=== PATIENT | female | born 2000 | race American Indian/Alaskan Native ===

== ENCOUNTER 2020-09-14 21:23 | Inpatient (IN) | payer OTHER ==
[2020-09-14] MEDS ORDERED: TERBUTALINE 1 MG/1 ML INJ SUB-Q PRN (21:48)
[2020-09-14] MEDS ORDERED: ePHEDrine SULFATE 50 MG/1 ML INJ IV PRN (21:48)
[2020-09-14] MEDS ORDERED: ACETAMINOPHEN 325 MG TAB PO PRN (21:48)
[2020-09-14] MEDS ORDERED: MINERAL OIL 30 ML ORAL LIQD PO PRN (21:48)
[2020-09-14] MEDS ORDERED: LIDOCAINE (2%) 20 MG/1 ML VIAL 20 ML MDV INFILTRATI ONE (21:48)
[2020-09-14] MEDS ORDERED: OXYTOCIN DRIP 30 UNITS/500 ML BAG IV SCH ×2 (22:00→23:00)
--- NOTE | 2020-09-14 22:29 | History and Physical Report ---
History of Present Illness Date of examination: 09/14/20 Date of admission: 09/14/20 21:23 Chief complaint: Here for induction of labor History of present illness: 19 year old presents to L&D for induction of labor due to gestational hypertension. Patient denies headache, visual disturbance, swelling, or nausea/vomiting. 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 LMP 12/24/2019. DEBO 09/29/2020. significant for the following: late care, insufficient care (missed a number of appointments), PIH. labs are as follows: B+, antibody screen negative, hepatitis B surface antigen negative, RPR nonreactive, HIV negative, gonorrhea negative, chlamydia negative, trichomonas negative, hemoglobin electroporesis negative, AFP negative, 1 hour sugar test 106, GBS negative. 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 denies: smoking, alcohol abuse, prescription drug abuse, IV drug use - Obstetrical History Expected Date of Delivery: 09/29/20 Actual Gestation: 37 Week(s) 6 Day(s) : 1 Para: 0 Hx # Term Pregnancies: 0 Number of Pregnancies: 0 Spontaneous Abortions: 0 Induced : 0 Number of Living Children: 0 Medications and Allergies Allergies Allergy/AdvReac Type Severity Reaction Status Date / Time No Known Drug Allergies Allergy Unknown Verified 09/14/20 21:57 Home Medications Medication Instructions Recorded Confirmed Last Taken Type No Known Home Medications [No 09/14/20 09/14/20 Unknown History Reported Home Medications] Active Meds: Active Medications Acetaminophen (Acetaminophen 325 Mg Tab) 650 mg PO Q4H PRN PRN Reason: Pain, Mild (1-3) Ephedrine Sulfate (Ephedrine Sulfate 50 Mg/1 Ml Inj) 10 mg IV Q2M PRN PRN Reason: Hypotension Fentanyl (Fentanyl 100 Mcg/2 Ml Inj) 100 mcg IV Q2H PRN PRN Reason: Pain,Severe (7-10) LABOR PAIN Lactated Ringer's (Lactated Ringers) 1,000 mls @ 125 mls/hr IV DIRECT TERRA Oxytocin/Sodium Chloride (Pitocin/Ns 30 Unit/500ml) 30 units in 500 mls @ 40 mls/hr IV TITR TERRA; Protocol Mineral Oil (Mineral Oil 30 Ml Oral Liqd) 30 ml PO QHS PRN PRN Reason: Constipation Terbutaline Sulfate (Terbutaline 1 Mg/1 Ml Inj) 0.25 mg SUB-Q ONCE PRN PRN Reason: Hyperstimulation/Hypertonicity Review of Systems All systems: negative (irregular contractions) - Vital Signs Vital signs: Vital Signs Temp Pulse Resp BP Pulse Ox 98.3 F 108 H 12 143/95 100 09/14/20 21:49 09/14/20 21:49 09/14/20 21:49 09/14/20 21:49 09/14/20 21:49 Temp Pulse Resp BP Pulse Ox 98.3 F 111 H 12 143/95 100 09/14/20 21:49 09/14/20 22:16 09/14/20 21:49 09/14/20 21:55 09/14/20 22:16 - Physical Exam Abdomen: Positive: normal appearance, soft. Negative: distention, tenderness, guarding, rigidity Genitourinary (Female): Positive: normal external genitalia, normal perenium. Negative: perineal/vulvar lesions Vagina: Positive: normal moisture Uterus: Positive: enlarged. Negative: tender Anus/Rectum: Positive: normal perianal skin Extremities: Positive: normal. Negative: tenderness, edema - Obstetrical FHR: category 1 Uterine Contraction Monitor Mode: Palpation Cervical Dilatation: 0.5 Cervical Effacement Percentage: 30 station: -3 Uterine Contraction Pattern: Irregular Uterine Contraction Intensity: Mild Results All other labs normal. Assessment and Plan A: at 37 weeks, 6 days gestation. Gestational hypertension. P: Admit. EFM. Preeclamptic labs. US for presentation. Cervical ripening and induction of labor. Discussed with patient risks and benefits of cervical ripening and induction of labor. Patient consented to cervical ripening and induction of labor.
[2020-09-14 22:32] LABS: Hematocrit 28.7 % (30.3-42.9); Hemoglobin 9.4 gm/dl (10.1-14.3); Mean Corpuscular HGB Conc 33 % (30-34); Mean Corpuscular Volume 72 fl (79-97); Platelet Count 312 K/mm3 (140-440); Red Blood Count 4.01 M/mm3 (3.65-5.03)
[2020-09-14 22:44] LABS: Alanine Aminotransferase 17 units/L (7-56); Albumin 3.7 g/dL (3.9-5); BUN/Creatinine Ratio 14; Blood Urea Nitrogen 10 mg/dL (7-17); Calcium 9.2 mg/dL (8.4-10.2); Hemolysis Index 10
[2020-09-14] MEDS: LACTATED RINGERS 1,000 ML IV SCH (23:10)
--- NOTE | 2020-09-14 23:26 | Ultrasound Report ---
ULTRASOUND OBSTETRIC LIMITED INDICATION / CLINICAL INFORMATION: presentation. Clinical Gestational Age (GA) in weeks, days: 37 weeks 6 days TECHNIQUE: Transabdominal. COMPARISON: None available. FINDINGS: HEART RATE (beats per minute): 156 AMNIOTIC FLUID INDEX (cm) = not measured (normal = 7-24 cm) PRESENTATION: Cephalic. ADDITIONAL FINDINGS: None. IMPRESSION: 1. Single viable IUP in a cephalic presentation. Signer Name: Terri Mcclellan MD Signed: 09/14/2020 11:22 PM Workstation Name: [id number]
[2020-09-15 02:04] LABS: Amphetamine Screen,Urine PRESUMPTIVE NEGATIVE; Benzodiazepines Screen,Urine PRESUMPTIVE NEGATIVE; Cannabinoid Screen,Urine PRESUMPTIVE NEGATIVE; Cocaine Screen,Urine PRESUMPTIVE NEGATIVE; Methadone Screen,Urine PRESUMPTIVE NEGATIVE; Opiate Screen,Urine PRESUMPTIVE NEGATIVE
[2020-09-15 02:05] LABS: Bacteria,Urine 2+ /HPF (Negative); Bilirubin,Urine NEG (Negative); Blood,Urine NEG (Negative); Color,Urine Yellow (Yellow); Protein,Urine <15 mg/dL mg/dL (Negative); Urobilinogen,Urine < 2.0 mg/dL (<2.0)
[2020-09-15] MEDS ORDERED: DINOPROSTONE 10 MG VAG SUPP VG ONE ×2 (06:48→19:43)
--- NOTE | 2020-09-15 07:41 | Event Note ---
Date: 09/15/20 Patient is 38 weeks gestation having cervical ripening with Cervidil due to PIH. BPs are stable. Reassuring FHR. Care of patient turned over to Dr. Lomas.
--- NOTE | 2020-09-15 12:34 | Progress Note ---
Assessment and Plan - Patient Problems (1) Gestational hypertension Current Visit: Yes Status: Acute Plan to address problem: Pt is being induced. Cont care. BPs currently stable. Normal preeclamptic labs Subjective - Subjective Date of service: 09/15/20 (38w 0d) Patient reports: other (Pt is stable s/p cervidil #1. No preeclamptic sxs. preeclamptic Labs WNL.) Objective - Vital Signs Vital Signs: Vital Signs - 12hr 09/15/20 09/15/20 09/15/20 00:36 00:41 00:46 Temperature Pulse Rate 108 H 87 84 Respiratory Rate Blood Pressure 117/76 O2 Sat by Pulse 99 100 100 Oximetry 09/15/20 09/15/20 09/15/20 00:51 00:56 01:01 Temperature Pulse Rate 101 H 99 H 100 H Respiratory Rate Blood Pressure O2 Sat by Pulse 99 100 99 Oximetry 09/15/20 09/15/20 09/15/20 01:06 01:11 01:16 Temperature Pulse Rate 114 H 100 H 92 H Respiratory Rate Blood Pressure 131/81 O2 Sat by Pulse 100 100 100 Oximetry 09/15/20 09/15/20 09/15/20 01:21 01:26 01:40 Temperature Pulse Rate 111 H 98 H 117 H Respiratory Rate Blood Pressure O2 Sat by Pulse 99 100 94 Oximetry 09/15/20 09/15/20 09/15/20 01:45 01:50 01:55 Temperature Pulse Rate 92 H 105 H 100 H Respiratory Rate Blood Pressure 126/83 O2 Sat by Pulse 100 99 100 Oximetry 09/15/20 09/15/20 09/15/20 02:00 02:05 02:10 Temperature Pulse Rate 108 H 107 H 100 H Respiratory Rate Blood Pressure O2 Sat by Pulse 100 100 100 Oximetry 09/15/20 09/15/20 09/15/20 02:15 02:20 02:25 Temperature Pulse Rate 95 H 95 H 95 H Respiratory Rate Blood Pressure 121/80 O2 Sat by Pulse 100 99 99 Oximetry 09/15/20 09/15/20 09/15/20 02:30 02:35 02:40 Temperature Pulse Rate 91 H 90 120 H Respiratory Rate Blood Pressure O2 Sat by Pulse 99 99 97 Oximetry 09/15/20 09/15/20 09/15/20 02:45 02:46 02:50 Temperature Pulse Rate 99 H 98 H 98 H Respiratory Rate Blood Pressure 105/60 O2 Sat by Pulse 97 98 Oximetry 09/15/20 09/15/20 09/15/20 02:55 03:00 03:05 Temperature Pulse Rate 103 H 94 H 103 H Respiratory Rate Blood Pressure O2 Sat by Pulse 99 99 99 Oximetry 09/15/20 09/15/20 09/15/20 03:10 03:15 03:16 Temperature Pulse Rate 88 86 81 Respiratory Rate Blood Pressure 119/68 O2 Sat by Pulse 99 99 Oximetry 09/15/20 09/15/20 09/15/20 03:21 03:26 03:31 Temperature Pulse Rate 91 H 89 89 Respiratory Rate Blood Pressure O2 Sat by Pulse 98 98 98 Oximetry 09/15/20 09/15/20 09/15/20 03:36 03:41 03:46 Temperature Pulse Rate 107 H 95 H 95 H Respiratory Rate Blood Pressure 117/63 O2 Sat by Pulse 98 99 100 Oximetry 09/15/20 09/15/20 09/15/20 03:51 04:04 04:09 Temperature Pulse Rate 89 87 101 H Respiratory Rate Blood Pressure O2 Sat by Pulse 99 100 100 Oximetry 09/15/20 09/15/20 09/15/20 04:14 04:15 04:19 Temperature Pulse Rate 95 H 88 84 Respiratory Rate Blood Pressure 114/69 O2 Sat by Pulse 100 100 Oximetry 09/15/20 09/15/20 09/15/20 04:24 04:29 04:34 Temperature Pulse Rate 99 H 94 H 103 H Respiratory Rate Blood Pressure O2 Sat by Pulse 99 99 99 Oximetry 09/15/20 09/15/20 09/15/20 04:39 04:44 04:45 Temperature Pulse Rate 95 H 96 H 88 Respiratory Rate Blood Pressure 120/70 O2 Sat by Pulse 98 99 Oximetry 09/15/20 09/15/20 09/15/20 04:49 04:54 04:59 Temperature Pulse Rate 98 H 104 H 95 H Respiratory Rate Blood Pressure O2 Sat by Pulse 98 100 99 Oximetry 09/15/20 09/15/20 09/15/20 05:04 05:09 05:14 Temperature Pulse Rate 89 105 H 95 H Respiratory Rate Blood Pressure O2 Sat by Pulse 99 99 99 Oximetry 09/15/20 09/15/20 09/15/20 05:15 05:19 05:24 Temperature Pulse Rate 86 91 H 90 Respiratory Rate Blood Pressure 115/70 O2 Sat by Pulse 99 99 Oximetry 09/15/20 09/15/20 09/15/20 05:29 05:34 05:39 Temperature Pulse Rate 90 91 H 91 H Respiratory Rate Blood Pressure O2 Sat by Pulse 99 98 98 Oximetry 09/15/20 09/15/20 09/15/20 05:44 05:46 05:49 Temperature Pulse Rate 101 H 83 86 Respiratory Rate Blood Pressure 113/64 O2 Sat by Pulse 99 100 Oximetry 09/15/20 09/15/20 09/15/20 05:54 05:59 06:04 Temperature Pulse Rate 90 90 86 Respiratory Rate Blood Pressure O2 Sat by Pulse 99 99 98 Oximetry 09/15/20 09/15/20 09/15/20 06:09 06:14 06:15 Temperature Pulse Rate 79 95 H 90 Respiratory Rate Blood Pressure 118/71 O2 Sat by Pulse 100 100 Oximetry 09/15/20 09/15/20 09/15/20 06:19 06:24 06:29 Temperature Pulse Rate 95 H 90 98 H Respiratory Rate Blood Pressure O2 Sat by Pulse 100 100 100 Oximetry 09/15/20 09/15/20 09/15/20 06:34 06:39 06:44 Temperature Pulse Rate 90 88 89 Respiratory Rate Blood Pressure O2 Sat by Pulse 99 99 99 Oximetry 09/15/20 09/15/20 09/15/20 06:46 06:49 06:54 Temperature Pulse Rate 98 H 95 H 91 H Respiratory Rate Blood Pressure 113/60 O2 Sat by Pulse 100 100 Oximetry 09/15/20 09/15/20 09/15/20 06:59 07:04 07:09 Temperature Pulse Rate 98 H 103 H 82 Respiratory Rate Blood Pressure O2 Sat by Pulse 100 99 99 Oximetry 09/15/20 09/15/20 09/15/20 07:14 07:16 07:19 Temperature Pulse Rate 85 83 81 Respiratory Rate Blood Pressure 112/62 O2 Sat by Pulse 99 99 Oximetry 09/15/20 09/15/20 09/15/20 07:24 07:29 07:34 Temperature Pulse Rate 91 H 96 H 89 Respiratory Rate Blood Pressure O2 Sat by Pulse 99 99 99 Oximetry 09/15/20 09/15/20 09/15/20 07:39 07:44 07:46 Temperature Pulse Rate 105 H 79 82 Respiratory Rate Blood Pressure 120/80 O2 Sat by Pulse 100 98 Oximetry 09/15/2009/15/09/15/20 07:49 07:54 07:59 Temperature Pulse Rate 92 H 88 89 Respiratory Rate Blood Pressure O2 Sat by Pulse 99 99 99 Oximetry 09/15/20 09/15/20 09/15/20 08:00 08:04 08:09 Temperature 98.4 F Pulse Rate 90 88 Respiratory 18 Rate Blood Pressure O2 Sat by Pulse 99 100 Oximetry 09/15/20 09/15/20 09/15/20 08:14 08:15 08:19 Temperature Pulse Rate 91 H 92 H 86 Respiratory Rate Blood Pressure 115/75 O2 Sat by Pulse 100 100 Oximetry 09/15/20 09/15/20 09/15/20 08:24 08:29 08:34 Temperature Pulse Rate 83 90 95 H Respiratory Rate Blood Pressure O2 Sat by Pulse 99 99 99 Oximetry 09/15/20 09/15/20 09/15/20 08:39 08:44 08:45 Temperature Pulse Rate 94 H 92 H 86 Respiratory Rate Blood Pressure 126/78 O2 Sat by Pulse 99 99 Oximetry 09/15/20 09/15/20 09/15/20 08:49 08:54 08:59 Temperature Pulse Rate 96 H 94 H 81 Respiratory Rate Blood Pressure O2 Sat by Pulse 100 100 99 Oximetry 09/15/20 09/15/20 09/15/20 09:04 09:09 09:14 Temperature Pulse Rate 91 H 89 93 H Respiratory Rate Blood Pressure O2 Sat by Pulse 100 100 100 Oximetry 09/15/20 09/15/20 09/15/20 09:16 09:19 09:24 Temperature Pulse Rate 99 H 97 H 98 H Respiratory Rate Blood Pressure 117/69 O2 Sat by Pulse 99 97 Oximetry 09/15/2009/15/09/15/20 09:37 09:42 09:46 Temperature Pulse Rate 93 H 109 H 109 H Respiratory Rate Blood Pressure 110/63 O2 Sat by Pulse 100 100 Oximetry 09/15/2009/15/09/15/20 09:47 09:52 09:57 Temperature Pulse Rate 98 H 98 H 93 H Respiratory Rate Blood Pressure O2 Sat by Pulse 99 98 98 Oximetry 09/15/20 09/15/20 09/15/20 10:02 10:07 10:12 Temperature Pulse Rate 78 94 H 89 Respiratory Rate Blood Pressure O2 Sat by Pulse 98 98 98 Oximetry 09/15/20 09/15/20 09/15/20 10:16 10:17 10:22 Temperature Pulse Rate 94 H 84 88 Respiratory Rate Blood Pressure 121/65 O2 Sat by Pulse 98 97 Oximetry 09/15/20 09/15/20 09/15/20 10:27 10:32 10:37 Temperature Pulse Rate 88 81 97 H Respiratory Rate Blood Pressure O2 Sat by Pulse 98 98 97 Oximetry 09/15/20 09/15/20 09/15/20 10:42 10:46 10:47 Temperature Pulse Rate 86 85 91 H Respiratory Rate Blood Pressure 116/67 O2 Sat by Pulse 100 100 Oximetry 09/15/20 09/15/20 09/15/20 10:52 10:57 11:02 Temperature Pulse Rate 97 H 82 99 H Respiratory Rate Blood Pressure O2 Sat by Pulse 97 100 97 Oximetry 09/15/20 09/15/20 09/15/20 11:07 11:12 11:16 Temperature Pulse Rate 100 H 79 89 Respiratory Rate Blood Pressure 117/72 O2 Sat by Pulse 99 100 Oximetry 09/15/20 09/15/20 09/15/20 11:17 11:22 11:27 Temperature Pulse Rate 94 H 83 90 Respiratory Rate Blood Pressure O2 Sat by Pulse 100 99 98 Oximetry 09/15/20 09/15/20 09/15/20 11:32 11:37 11:42 Temperature Pulse Rate 83 80 96 H Respiratory Rate Blood Pressure O2 Sat by Pulse 98 98 99 Oximetry 09/15/20 09/15/20 09/15/20 11:46 11:47 11:52 Temperature Pulse Rate 78 92 H 89 Respiratory Rate Blood Pressure 119/72 O2 Sat by Pulse 100 100 Oximetry 09/15/2009/15/09/15/20 11:57 12:02 12:07 Temperature Pulse Rate 80 91 H 88 Respiratory Rate Blood Pressure O2 Sat by Pulse 100 99 100 Oximetry 09/15/2020/09/15/20 12:12 12:16 12:17 Temperature Pulse Rate 88 80 86 Respiratory Rate Blood Pressure 118/74 O2 Sat by Pulse 100 100 Oximetry 09/15/2009/15/09/15/20 12:19 12:22 12:27 Temperature 98.3 F Pulse Rate 102 H 84 Respiratory 18 Rate Blood Pressure O2 Sat by Pulse 98 99 Oximetry - Exam FHR: auscultation normal Uterine Contraction Pattern: Absent - Labs Labs: Abnormal Labs 09/14/20 09/14/20 09/14/20 22:00 22:00 22:00 Hgb 9.4 L Hct 28.7 L MCV 72 L MCH 23 L RDW 18.0 H Sodium 135 L Uric Acid 3.1 L Alkaline Phosphatase 191 H Lactate Dehydrogenase 241 H Albumin 3.7 L Laboratory Results - last 24 hr 09/14/20 09/14/20 09/14/20 22:00 22:00 22:00 WBC 10.5 RBC 4.01 Hgb 9.4 L Hct 28.7 L MCV 72 L MCH 23 L MCHC 33 RDW 18.0 H Plt Count 312 Sodium 135 L Potassium 4.4 Chloride 101.3 Carbon Dioxide 24 Anion Gap 14 BUN 10 Creatinine 0.7 Estimated GFR > 60 BUN/Creatinine Ratio 14 Glucose 90 Uric Acid Calcium 9.2 Total Bilirubin 0.20 AST 26 ALT 17 Alkaline Phosphatase 191 H Lactate Dehydrogenase 241 H Total Protein 6.6 Albumin 3.7 L Albumin/Globulin Ratio 1.3 Urine Color Urine Turbidity Urine pH Ur Specific [place] Urine Protein Urine Glucose (UA) Urine Ketones Urine Blood Urine Nitrite Urine Bilirubin Urine Urobilinogen Ur Leukocyte Esterase Urine WBC (Auto) Urine RBC (Auto) U Epithel Cells (Auto) Urine Bacteria (Auto) Urine Opiates Screen Urine Methadone Screen Ur Barbiturates Screen Ur Phencyclidine Scrn Ur Amphetamines Screen U Benzodiazepines Scrn Urine Cocaine Screen U Marijuana (THC) Screen Drugs of Abuse Note Syphilis IgG Antibody Blood Type B POSITIVE Antibody Screen Negative 09/14/20 09/14/20 09/15/20 22:00 22:00 01:30 WBC RBC Hgb Hct MCV MCH MCHC RDW Plt Count Sodium Potassium Chloride Carbon Dioxide Anion Gap BUN Creatinine Estimated GFR BUN/Creatinine Ratio Glucose Uric Acid 3.1 L Calcium Total Bilirubin AST ALT Alkaline Phosphatase Lactate Dehydrogenase Total Protein Albumin Albumin/Globulin Ratio Urine Color Yellow Urine Turbidity Slightly-cloudy Urine pH 7.0 Ur Specific [place] 1.008 Urine Protein <15 mg/dl Urine Glucose (UA) Neg Urine Ketones Neg Urine Blood Neg Urine Nitrite Neg Urine Bilirubin Neg Urine Urobilinogen < 2.0 Ur Leukocyte Esterase Tr Urine WBC (Auto) 3.0 Urine RBC (Auto) 2.0 U Epithel Cells (Auto) 8.0 Urine Bacteria (Auto) 2+ Urine Opiates Screen Urine Methadone Screen Ur Barbiturates Screen Ur Phencyclidine Scrn Ur Amphetamines Screen U Benzodiazepines Scrn Urine Cocaine Screen U Marijuana (THC) Screen Drugs of Abuse Note Syphilis IgG Antibody Nonreactive Blood Type Antibody Screen 09/15/20 01:30 WBC RBC Hgb Hct MCV MCH MCHC RDW Plt Count Sodium Potassium Chloride Carbon Dioxide Anion Gap BUN Creatinine Estimated GFR BUN/Creatinine Ratio Glucose Uric Acid Calcium Total Bilirubin AST ALT Alkaline Phosphatase Lactate Dehydrogenase Total Protein Albumin Albumin/Globulin Ratio Urine Color Urine Turbidity Urine pH Ur Specific [place] Urine Protein Urine Glucose (UA) Urine Ketones Urine Blood Urine Nitrite Urine Bilirubin Urine Urobilinogen Ur Leukocyte Esterase Urine WBC (Auto) Urine RBC (Auto) U Epithel Cells (Auto) Urine Bacteria (Auto) Urine Opiates Screen Presumptive negative Urine Methadone Screen Presumptive negative Ur Barbiturates Screen Presumptive negative Ur Phencyclidine Scrn Presumptive negative Ur Amphetamines Screen Presumptive negative U Benzodiazepines Scrn Presumptive negative Urine Cocaine Screen Presumptive negative U Marijuana (THC) Screen Presumptive negative Drugs of Abuse Note Disclamer Syphilis IgG Antibody Blood Type Antibody Screen
[2020-09-16] MEDS: fentaNYL 100 MCG/2 ML INJ IV PRN ×3 (06:30→14:45)
--- NOTE | 2020-09-16 08:15 | Event Note ---
Date: 09/16/20 Assumed care of patient. Patient is 38 weeks, 1 day gestation and is having labor induced due to PIH. Patient has Cervidil in place.
--- NOTE | 2020-09-16 10:36 | Event Note ---
Date: 09/16/20 Cervidil removed. SVE /-1.
[2020-09-16] MEDS: LACTATED RINGERS 1,000 ML IV SCH ×2 (10:41→18:08)
[2020-09-16] MEDS ORDERED: OXYTOCIN DRIP 30 UNITS/500 ML BAG IV SCH (13:00)
--- NOTE | 2020-09-16 16:57 | Event Note ---
Date: 09/16/20 SVE -.
--- NOTE | 2020-09-16 17:53 | Anesthesia Consultation ---
Anesthesia Consult and Med Hx Date of service: 09/16/20 - Airway Anesthetic Teeth Evaluation: Good ROM Head & Neck: Adequate Mental/Hyoid Distance: Adequate Mallampati Class: Class II Intubation Access Assessment: Good - Pulmonary Exam CTA: Yes - Cardiac Exam Cardiac Exam: RRR - Pre-Operative Health Status ASA Pre-Surgery Classification: ASA2 Proposed Anesthetic Plan: Epidural - Pulmonary Hx Smoking: No Hx Asthma: No Hx Respiratory Symptoms: No SOB: No COPD: No Home Oxygen Therapy: No Hx Pneumonia: No Hx Sleep Apnea: No - Cardiovascular System Hx Hypertension: No Hx Coronary Artery Disease: No Hx Heart Attack/AMI: No Hx Angina: No Hx Percutaneous Transluminal Coronary Angioplasty (PTCA): No Hx Cardia Arrhythmia: No Hx Pacemaker: No Hx Internal Defibrillator: No Hx Valvular Heart Disease: No Hx Heart Murmur: No Hx Peripheral Vascular Disease: No - Central Nervous System Hx Neuromuscular Disorder: No Hx Seizures: No CVA: No Hx Back Pain: No Hx Psychiatric Problems: No - Gastrointestinal Hx Ulcer: No Hx Gastroesophageal Reflux Disease: Yes - Endocrine Hx Renal Disease: No Hx End Stage Renal Disease: No Hx Cirrhosis: No Hx Liver Disease: No Hx Insulin Dependent Diabetes: No Hx Non-Insulin Dependent Diabetes: No Hx Thyroid Disease: No Hx Hypothyroidism: No Hx Hyperthyroidism: No - Hematic Hx Anemia: No Hx Sickle Cell Disease: No - Other Systems Hx Alcohol Use: No Hx Substance Use: No Hx Cancer: No Hx Obesity: No
[2020-09-16] MEDS ORDERED: ePHEDrine SULFATE 50 MG/1 ML INJ IV PRN (17:55)
[2020-09-16] MEDS ORDERED: NALOXONE 2 MG/2 ML INJ IV PRN (17:55)
--- NOTE | 2020-09-16 17:55 | Progress Note ---
Labor Epidural - Labor Epidural Start Time: 17:10 Stop Time: 17:24 Performed by:: PATRIC MAGAÑA Procedure: Patient is requesting a laboring epidural for laboring pain. Patient IDed, H&P reviewed, all questions and concerns were answered, and consent was signed. Timeout was performed at bedside. Patient in sitting position. Sterile prep and drape was performed. [3] ml of 1% lidocaine skin wheal at L[3]- L [4]. 18- gauge Tuohy epidural needle was advanced to loss of resistance with saline technique 6cm. Negative CSF negative blood. Epidural catheter advanced to [10] centimeters. [NEGATIVE] Aspiration [NEGATIVE] test dose. Sterile dressing applied. Patient tolerated procedure.
[2020-09-16] MEDS ORDERED: fentaNYL-BUPIV 2 MCG/ML-0.125% 200 MCG/100 ML BAG EPIDURAL SCH (18:00)
--- NOTE | 2020-09-16 18:57 | Event Note ---
Date: 09/16/20 After patient received epidural, late heart rate decelerations noted; normal FHR baseline and moderate variability. Pitocin was turned off as soon as late decelerations were noted; IV fluid bolus was given and patient was positioned in left lateral position. SVE 10/100/+1. Late decels have resolved. Anticipate . Consulted with Dr. Lomas re: all of the above.
[2020-09-16] MEDS ORDERED: miSOPROStol 200 MCG TAB ONE (19:19)
[2020-09-16] MEDS ORDERED: HYDROcodone/ACETAMINOPHEN 5-325 MG TAB PO PRN (19:51)
[2020-09-16] MEDS ORDERED: WITCH HAZEL/ GLYCERIN PAD TP PRN (19:51)
[2020-09-16] MEDS ORDERED: LANOLIN/ZINC/DIMETHICONE (LANSINOH) 7 GM TP PRN (19:51)
[2020-09-16] MEDS ORDERED: MAGNESIUM HYDROXIDE (MOM) ORAL LIQD UDC PO PRN (19:51)
--- NOTE | 2020-09-16 20:00 | Procedure Note ---
OB Delivery Note - Delivery Date of Delivery: 09/16/20 Surgeon: KENISHA LARES Estimated blood loss: 300cc - Vaginal Delivery presentation: vertex Delivery position: OA Intrapartum events: shoulder dystocia Delivery induction: cervidil Delivery monitor: external FHT, external uterine Route of delivery: Delivery placenta: spontaneous Delivery cord: 3 umbilical vessels Episiotomy: none Delivery laceration: 1st degree Delivery repair: vicryl Anesthesia: epidural Delivery comments: Spontaneous vaginal delivery at 19:15 of liveborn male infant weighing 7 lb. 1 oz. over first degree laceration with apgars of 8/9. Epidural anesthesia. Turtle sign noted at delivery; left anterior shoulder dystocia resolved with Magda maneuver, suprapubic pressure, and delivery of posterior arm. Interval from delivery of head to delivery of body less than 1 minute. Baby placed skin to skin with mom immediately after delivery. Spontaneous cry and respirations. Baby suctioned with bulb syringe and dried with warm towels. 3 vessel cord double clamped and cut. Spontaneous delivery of intact placenta and membranes by godinez mechanism. EBL 300 cc. Pitocin to IV fluids after delivery of placenta. Cytotec 800 mcg given rectally due to uterine atony. Fundus firmed with massage. First degree perineal laceration repaired with 2-0 vicryl. No other lacerations noted. Vaginal sweep negative. Sponge count correct. Mother and baby stable.
[2020-09-16] MEDS ORDERED: miSOPROStol 200 MCG TAB PR ONE (20:20)
[2020-09-17] MEDS: IBUPROFEN 600 MG TAB PO SCH ×5 (00:38→23:26)
[2020-09-17] MEDS: DOCUSATE SODIUM 100 MG CAP PO SCH ×3 (00:38→23:26)
--- NOTE | 2020-09-17 05:43 | Post Anesthesia Evaluation ---
- Post Anesthesia Evaluation Patient Participated: Yes Airway Patent: Yes Stable Respiratory Function: Yes Nausea/Vomiting: No Temp > 96.8F: Yes Pain Manageable: Yes Adequeate Hydration: Yes Anesthesia Complications: No Block Receding Appropriately: Yes Patient on Ventilator: No
[2020-09-17 10:15] LABS: Hematocrit 27.9 % (30.3-42.9); Hemoglobin 8.9 gm/dl (10.1-14.3)
[2020-09-17] MEDS ORDERED: IRON DEXTRAN COMPLEX 100 MG/2 ML INJ IM ONE (12:00)
--- NOTE | 2020-09-17 12:17 | Progress Note ---
Assessment and Plan A: PP Day #1 Gestational HTN Asymptomatic Anemia P: Follow Routine Orders Infed 100mg IM x 1 Dose Ferrous Sulfate 325mg PO BID Monitor Blood Pressures Subjective - Subjective Date of service: 09/17/20 Patient reports: appetite normal, voiding normally, pain well controlled, flatus, bowel movement, ambulating normally, other (Denies HAs, visual changes, epigastic pain, N&V, dizziness, fatigue) [place]: doing well Objective - Vital Signs Latest vital signs: Vital Signs Temp Pulse Resp BP BP Pulse Ox 09/17/20 08:23 98.1 F 103 H 18 124/84 99 09/17/20 04:56 99.0 F 119 H 20 129/81 95 09/16/20 22:30 99.4 F 94 H 18 135/88 100 09/16/20 21:55 111 H 132/81 09/16/20 21:40 110 H 137/80 09/16/20 21:25 100 H 142/75 09/16/20 21:10 91 H 140/72 09/16/20 20:40 90 123/80 09/16/20 20:25 83 125/79 09/16/20 20:10 90 121/80 09/16/20 19:42 96 H 100 09/16/20 19:40 94 H 120/61 09/16/20 19:37 100 H 100 09/16/20 19:32 98 H 100 09/16/20 19:30 98.1 F 09/16/20 19:27 100 H 100 09/16/20 19:25 102 H 136/73 09/16/20 19:22 122 H 100 09/16/20 19:17 143 H 100 09/16/20 19:12 95 H 100 09/16/20 19:11 127 H 157/88 09/16/20 19:07 125 H 100 09/16/20 19:02 98 H 100 09/16/20 18:57 90 100 09/16/20 18:55 89 111/67 09/16/20 18:52 90 100 09/16/20 18:47 88 100 09/16/20 18:42 86 100 09/16/20 18:41 88 112/61 09/16/20 18:37 92 H 100 09/16/20 18:32 78 99 09/16/20 18:27 79 99 09/16/20 18:25 82 101/54 09/16/20 18:22 76 98 09/16/20 18:17 75 99 09/16/20 18:12 77 98 09/16/20 18:09 80 94/54 09/16/20 18:07 79 95/52 99 09/16/20 18:05 81 96/55 09/16/20 18:03 77 94/54 09/16/20 18:02 77 98 09/16/20 18:01 80 97/55 09/16/20 17:59 78 101/54 09/16/20 17:57 79 118/62 99 09/16/20 17:55 81 111/58 09/16/20 17:53 80 104/60 09/16/20 17:52 83 98 09/16/20 17:51 82 109/59 09/16/20 17:49 86 113/58 09/16/20 17:47 81 109/59 98 09/16/20 17:45 85 112/58 09/16/20 17:43 83 112/65 09/16/20 17:42 85 99 09/16/20 17:41 91 H 115/69 09/16/20 17:39 93 H 115/71 09/16/20 17:37 84 117/70 100 09/16/20 17:35 90 121/71 09/16/20 17:33 92 H 120/71 09/16/20 17:32 90 100 09/16/20 17:31 84 128/74 09/16/20 17:29 93 H 132/73 09/16/20 17:27 103 H 138/79 100 09/16/20 17:25 107 H 143/87 09/16/20 17:23 99 H 149/89 09/16/20 17:22 110 H 100 09/16/20 17:21 106 H 153/94 09/16/20 17:19 98 H 148/91 09/16/20 17:17 97 H 150/92 100 09/16/20 17:15 99 H 143/90 09/16/20 17:13 95 H 137/92 09/16/20 17:10 107 H 100 09/16/20 17:07 112 H 86 09/16/20 17:05 86 100 09/16/20 14:45 18 09/16/20 13:17 90 132/87 09/16/20 12:46 73 133/84 09/16/20 12:17 75 126/85 Intake and Output 09/16/20 09/17/20 09/17/20 22:59 06:59 14:59 Intake Total 1175.034 220 Output Total 600 1500 600 Balance 575.034 -1280 -600 Intake: IV 935.034 Lactated Ringers 1,000 ml 931.25 @ 125 mls/hr IV DIRECT TERRA Rx#:[id number] PITOCin/NS 30 UNIT/500ML 3.784 30 units In 500 ml @ 2 mls/hr IV TITR TERRA Rx#: [id number] Oral 240 100 Intake, Free Water 120 Output: Urine 600 1500 600 Indwelling Catheter 600 1500 600 Other: Total, Intake Amount 240 100 Total, Output Amount 600 700 600 # Voids Indwelling Catheter 1 # Bowel Movements 1 Estimated Blood Loss 300 - Exam Breasts: Present: normal Cardiovascular: Present: Regular rate Lungs: Present: Clear to auscultation, Normal air movement Abdomen: Present: normal appearance, soft, normal bowel sounds Uterus: Present: normal, firm, fundal height above umbilicus Extremities: Present: normal - Labs Labs: Abnormal lab results 09/17/20 Range/Units 09:02 Hgb 8.9 L (10.1-14.3) gm/dl Hct 27.9 L (30.3-42.9) %
[2020-09-17] MEDS: FERROUS SULFATE 325 MG TAB PO SCH ×2 (13:51→23:26)
[2020-09-18] MEDS: IBUPROFEN 600 MG TAB PO SCH (05:12)
[2020-09-18] MEDS: FERROUS SULFATE 325 MG TAB PO SCH (10:02)
[2020-09-18] MEDS: DOCUSATE SODIUM 100 MG CAP PO SCH (10:02)
--- NOTE | 2020-09-18 10:56 | Progress Note ---
Assessment and Plan PPD #2 A: S/P with GHTN Asymptomatic anemia P: Continue routine pp care Fe prescribed Encourage ambulation D/C home today Subjective - Subjective Date of service: 09/18/20 Principal diagnosis: S/P Patient reports: appetite normal, voiding normally, pain well controlled, ambulating normally [place]: doing well, nursing well Objective - Vital Signs Latest vital signs: Vital Signs Temp Pulse Resp BP BP Pulse Ox 09/18/20 08:00 98.6 F 91 H 16 128/84 09/18/20 00:05 97.7 F 99 H 18 136/82 100 09/17/20 15:50 98.1 F 87 18 118/80 100 09/17/20 12:55 97.9 F 104 H 18 128/83 97 Intake and Output 09/17/20 09/18/20 09/18/20 22:59 06:59 14:59 Intake Total 360 Balance 360 Intake: Oral 360 Other: Total, Intake Amount 120 # Voids Void 1 1 - Exam Breasts: Present: normal Abdomen: Present: normal appearance, soft, normal bowel sounds Vulva: both: normal Uterus: Present: normal, firm, fundal height below umbilicus Extremities: Present: normal Incision: Present: normal, intact
--- NOTE | 2020-09-18 14:25 | Discharge Summary ---
Providers - Providers Date of Admission: 09/14/20 21:23 Date of discharge: 09/18/20 Attending physician: NATHALIE ARAUZ Primary care physician: NATHALIE ARAUZ Hospitalization Reason for admission: induction of labor Delivery: Episiotomy: none Laceration: 1st degree Incision: normal, intact Other procedures: none complications: none Discharge diagnosis: IUP at term delivered [place] baby: male Hospital course: Pt was admitted for an IOL r/t GHTN.She had a and no pp complications. Pt was d/c home w/o complaints. See H&P, delivery summary, and pp notes. Condition at discharge: Stable Disposition: DC-01 TO HOME OR SELFCARE Plan - Discharge Medications Prescriptions: Ferrous Sulfate [Feosol 325 MG tab] 325 mg PO BID #120 tablet Ibuprofen [Motrin 600 MG tab] 600 mg PO Q6H #30 tablet - Provider Discharge Summary Additional instructions: [] Smoking cessation referral if applicable(refer to patient education folder for contact #) [] Refer to [facility]'s [facility] Booklet Call your doctor immediately for: * Fever > 100.5 * Heavy vaginal bleeding ( >1 pad per hour) * Severe persistent headache * Shortness of breath * Reddened, hot, painful area to leg or breast * Drainage or odor from incision. * Keep incision clean and dry at all times and follow doctor's instructions regarding bathing/showering - Follow up plan Follow up: NATHALIE ARAUZ MD [Primary Care Provider] - 6 Weeks Forms: [facility] Discharge Summary
[2020-09-18 15:44] VITALS: BP 121/80
== END 2020-09-18 16:40 | disposition home or self-care (01) | DRG 775 ==
LOC: LD 21:23 → OB 09-16 22:39
PROVIDERS: ADMIT Obstetrics & Gynecology; ATTEND Obstetrics & Gynecology
PROC: 10E0XZZ Delivery of Products of Conception, External Approach (ICD-10-PCS; principal; 2020-09-16)
PROC: 0HQ9XZZ Repair Perineum Skin, External Approach (ICD-10-PCS; 2020-09-16)
PROC: 3E0P7VZ Introduction of Hormone into Female Reproductive, Via Natural or Artificial Opening (ICD-10-PCS; 2020-09-16)
PROC: 3E033VJ Introduction of Other Hormone into Peripheral Vein, Percutaneous Approach (ICD-10-PCS; 2020-09-16)
PROC: 3E0R3BZ Introduction of Anesthetic Agent into Spinal Canal, Percutaneous Approach (ICD-10-PCS; 2020-09-16)
PROC: 00HU33Z Insertion of Infusion Device into Spinal Canal, Percutaneous Approach (ICD-10-PCS; 2020-09-16)
DX: O13.4 Gestational [pregnancy-induced] hypertension without significant proteinuria, complicating childbirth (principal); Z3A.37 37 weeks gestation of pregnancy; Z37.0 Single live birth; Z20.822 Contact with and (suspected) exposure to COVID-19; O66.0 Obstructed labor due to shoulder dystocia; O70.0 First degree perineal laceration during delivery; O99.02 Anemia complicating childbirth; D64.9 Anemia, unspecified; O62.2 Other uterine inertia
CPT/HCPCS: 36415; 59200; 76815; 80053; 80307; 81001; 83615; 84550; 85014; 85018; 85027; 86592; 86850; 86900; 86901; G0378; J1750; J2590; J3010; J7120; U0003

== ENCOUNTER 2020-11-27 13:06 | Emergency (ER) | payer BC, OTHER ==
--- NOTE | 2020-11-27 15:58 | Emergency Department Report ---
- General Chief complaint: Urogenital-Female Stated complaint: BREAST PAINS Time Seen by Provider: 11/27/20 15:55 Source: patient Mode of arrival: Ambulatory Limitations: No Limitations - History of Present Illness Initial comments: Patient is a 20-year-old -[place] female that comes to the emergency room complaining of right breast pain. She is lactating. She has no fever or chills. She is ambulatory nontoxic and [id number] on exam. complaint: other -: Gradual, days(s) Tetanus Up to Date: yes Severity: mild Improves with: none Worsens with: none Context: none Associated symptoms: denies other symptoms - Related Data Previous Rx's Medication Instructions Recorded Last Taken Type Ferrous Sulfate [Feosol 325 MG tab] 325 mg PO BID #120 tablet 09/18/20 Unknown Rx Ibuprofen [Motrin 600 MG tab] 600 mg PO Q6H #30 tablet 09/18/20 Unknown Rx cephALEXin [Keflex] 500 mg PO Q6H #28 cap 11/27/20 Unknown Rx Allergies Allergy/AdvReac Type Severity Reaction Status Date / Time No Known Drug Allergies Allergy Unknown Verified 09/14/20 21:57 Abscess Boil HPI - HPI Chief Complaint: Urogenital-Female Stated Complaint: BREAST PAINS Time Seen by Provider: 11/27/20 15:55 Home Medications: Previous Rx's Medication Instructions Recorded Last Taken Type Ferrous Sulfate [Feosol 325 MG tab] 325 mg PO BID #120 tablet 09/18/20 Unknown Rx Ibuprofen [Motrin 600 MG tab] 600 mg PO Q6H #30 tablet 09/18/20 Unknown Rx cephALEXin [Keflex] 500 mg PO Q6H #28 cap 11/27/20 Unknown Rx Allergies/Adverse Reactions: Allergies Allergy/AdvReac Type Severity Reaction Status Date / Time No Known Drug Allergies Allergy Unknown Verified 09/14/20 21:57 ED Review of Systems ROS: Stated complaint: BREAST PAINS Other details as noted in HPI Comment: All other systems reviewed and negative ED Past Medical Hx - Past Medical History Hx Hypertension: No Hx Heart Attack/AMI: No Hx Congestive Heart Failure: No Hx Diabetes: No Hx Deep Vein Thrombosis: No Hx Liver Disease: No Hx Renal Disease: No Hx Sickle Cell Disease: No Hx Seizures: No Hx Asthma: No Hx COPD: No Hx HIV: No - Surgical History Hx Pacemaker: No Hx Internal Defibrillator: No - Social History Smoking Status: Never Smoker - Medications Home Medications: Home Medications Medication Instructions Recorded Confirmed Last Taken Type Ferrous Sulfate [Feosol 325 MG tab] 325 mg PO BID #120 tablet 09/18/20 Unknown Rx Ibuprofen [Motrin 600 MG tab] 600 mg PO Q6H #30 tablet 09/18/20 Unknown Rx cephALEXin [Keflex] 500 mg PO Q6H #28 cap 11/27/20 Unknown Rx ED Physical Exam - General Limitations: No Limitations General appearance: alert, in no apparent distress - Head Head exam: Present: atraumatic, normocephalic - Eye Eye exam: Present: normal appearance - ENT ENT exam: Present: mucous membranes moist - Neck Neck exam: Present: normal inspection - Respiratory Respiratory exam: Present: normal lung sounds bilaterally. Absent: respiratory distress - Cardiovascular Cardiovascular Exam: Present: regular rate, normal rhythm. Absent: systolic murmur, diastolic murmur, rubs, gallop - GI/Abdominal GI/Abdominal exam: Present: soft, normal bowel sounds - Extremities Exam Extremities exam: Present: normal inspection - Back Exam Back exam: Present: normal inspection - Neurological Exam Neurological exam: Present: alert, oriented X3 - Psychiatric Psychiatric exam: Present: normal affect, normal mood - Skin Skin exam: Present: warm, dry, intact, normal color. Absent: rash ED Medical Decision Making - Medical Decision Making Heart rate 88, respirations 18, temp 98 orally, blood pressure 110/80: As taken by the provider. Patient has been educated about mastitis. Patient being discharged home with Keflex prescription. She has been advised to check with her [employer] in the morning regarding his preference for or against Keflex. Per PDR Keflex is safe for . Patient verbalizes understanding. Critical care attestation.: If time is entered above; I have spent that time in minutes in the direct care of this critically ill patient, excluding procedure time. ED Disposition Clinical Impression: Mastitis Disposition: DC-01 TO HOME OR SELFCARE Is pt being admited?: No Does the pt Need Aspirin: No Condition: Stable Instructions: and Mastitis Additional Instructions: med as ordered today follow up with obgyn in 48 h for recheck warm compresses will help tylenol for pain Prescriptions: cephALEXin [Keflex] 500 mg PO Q6H #28 cap Referrals: HUSAM MONTES DE OCA MD [Staff Physician] - 3-5 Days Time of Disposition: 16:03
== END 2020-11-27 16:15 | disposition home or self-care (01) ==
LOC: ED 13:06
DX: N61.0 Mastitis without abscess (principal); Z79.1 Long term (current) use of non-steroidal anti-inflammatories (NSAID); Z79.899 Other long term (current) drug therapy
CPT/HCPCS: 99281